=== PATIENT | male | born 1950 | race Caucasian/White ===

== ENCOUNTER 2018-05-16 05:32 | Day surgery (SDC) | payer OTHER, BC ==
[~2018-05-16] VITALS: Ht 193 cm; Wt 120.2 kg
--- NOTE | ~2018-05-16 | O ---
[facility] [place] [address] OPERATIVE REPORT Name: CASSIDY OSCAR Room #: 150-2 [facility] M..#: [id number] Admission: 05/16/18 Attend Phys: Navin Woody MD Discharge: Date of : 50 Report #: [id number] THIS REPORT FOR: //name// CC: Yony Schulte PREOPERATIVE DIAGNOSIS: Left orbital dermolipoma with mechanical ectropion. POSTOPERATIVE DIAGNOSIS: Left orbital dermolipoma with mechanical ectropion. PROCEDURE: Left transconjunctival orbitotomy. SURGEON: Navin Woody M.D. ADVANCED MANUFACTURING CONSULTANT: None. ANESTHESIA: General. COMPLICATIONS: None. INDICATIONS FOR SURGERY: This pleasant 67-year-old gentleman has a left orbital mass inducing a secondary mechanical ectropion with chronic ocular irritation. The lesion appears to be an orbital dermolipoma. He presents today for debulking of this lesion transconjunctivally with histopathologic examination of the tissue removed. Informed consent was obtained to include but not limited to potential risk for loss of vision, bleeding, infection, failure to improve the problem, the potential need for further surgery or treatment. DESCRIPTION OF PROCEDURE: The patient was taken to the operating room where general anesthesia was administered. The left orbit was then anesthetized transconjunctivally with Xylocaine with epinephrine mixed with Marcaine and Wydase. An additional aliquot of anesthetic was administered over the left lateral canthus to achieve the 7th nerve block. The patient was subsequently prepped and draped in the usual sterile fashion. The lids were then retracted to allow access to the superolateral orbit. A transconjunctival incision was then made above the anticipated site of the superior border of the lateral rectus muscle. The dissection was then carried down through Tenon's capsule until the mass was identified. The mass was from the underlying globe, episclera, lateral rectus muscle, superior rectus muscle, and the lacrimal gland. The mass was then drawn anteriorly and clamped at its base with a Cynthia clamp. It was then amputated with a high-temp cautery. The stump was grasped before the clamp was released in order to ensure that hemostasis was achieved. The stump was released and then regrasped and an additional aliquot of tissue was similarly clamped, cauterized and removed. At this point in time, the mechanical ectropion was completely [address] [address] OPERATIVE REPORT Name: CASSIDY OSCAR Room #: 150-2 [facility].#: [id number] Admission: 05/16/18 Attend Phys: Navin Woody MD Discharge: Date of : 50 Report #: [id number] resolved. The incision was then closed with interrupted buried 6-0 plain gut sutures. Erythromycin ophthalmic ointment was then placed on the surface of the eye and the patient subsequently transported to the recovery area having tolerated the procedure well with no anesthetic or operative complications being noted. By: 1418 1516 Navin Woody MD /kenney
--- NOTE | ~2018-05-16 | PATH ---
[facility] [address] [place] [address] PATHOLOGY RPT PROCEDURE Name: CASSIDY OSCAR Room #: [place] [facility] [place]..#: [id number] Admission: 05/16/18 Date of : 50 Discharge: 05/16/18 Report #: [id number] Path Case #: [id number] [facility] Accession Number: [id number] . 01 Material submitted: . BENIGN NEOPLASM OF ORBIT . 01 Clinical history: . Benign neoplasm of orbit . 02 Diagnosis: Soft tissue "left orbital dermolipoma": - Mature lobulated fibroadipose tissue consistent with a lipoma. (SHA:colton; 05/18/2018) QMS/05/18/2018 . 02 Electronically signed: . Kuldip Vincent MD, Pathologist NPI- [id number] . 01 Gross description: . Received in formalin labeled "Cassidy Oscar, left orbital dermolipoma," are multiple segments of pale yellow, lobulated adipose tissue measuring 1.7 x 1.2 x 0.6 cm in aggregate dimensions. Sectioning reveals homogenous, pale yellow cut surfaces. The specimen is submitted entirely in cassette A1. (DAC; 05/17/2018) XDC/XDC . 02 Pathologist provided ICD-10: D17.79 . 02 CPT . 125980 Specimen Comment: A courtesy copy of this report has been sent to Specimen Comment: [phone], . Specimen Comment: Report sent to / DR ABDI Performed at: [address], [place], [place] [id number] MD Tono William MD Phone: [phone] Performed at: [address] [id number] MD Shannen Brower MD Phone: [phone]
[~2018-05-16 05:32] MED LIST: ASPIRIN325 PO; ATORVASTATIN CA40 MG PO; HYDROCODONE-AP1 EAC6 PO; LIPITOR 20 MG T20 M1 PO; LISINOPRIL10 MG PO; NEURONTIN 400400 M1 PO; NORCO 5-325 TA1 EACH PO; PROTONIX40 MG PO
[2018-05-16 13:13] VITALS: BP 162/81
== END 2018-05-16 15:30 | disposition home or self-care (01) ==
LOC: TBA 05:32 → OR 05:32
DX: D17.39 Benign lipomatous neoplasm of skin and subcutaneous tissue of other sites (principal); H02.1 Ectropion of eyelid; E78.00 Pure hypercholesterolemia, unspecified; K21.9 Gastro-esophageal reflux disease without esophagitis; G47.33 Obstructive sleep apnea (adult) (pediatric); Z85.47 Personal history of malignant neoplasm of testis; Z87.442 Personal history of urinary calculi; Z98.890 Other specified postprocedural states; Z79.899 Other long term (current) drug therapy; Z90.49 Acquired absence of other specified parts of digestive tract; Z79.82 Long term (current) use of aspirin; Z86.73 Personal history of transient ischemic attack (TIA), and cerebral infarction without residual deficits
CPT/HCPCS: 50010; 50101; 50386; 50398; 51636; 56531; 62110; 62900; 64037; 70005

== ENCOUNTER 2018-10-13 05:18 | Day surgery (SDC) | payer OTHER, BC ==
[~2018-10-13] VITALS: Ht 195.6 cm; Wt 127.9 kg
[~2018-10-13 05:18] MED LIST changes: +NEURONTIN600 MG PO
[2018-10-13 12:26] VITALS: BP 152/80
--- NOTE | 2018-10-17 06:18 | O ---
[facility] [place] [address] OPERATIVE REPORT Name: CASSIDY OSCAR Room #: DEP [facility]..#: [id number] Admission: 10/13/18 ������������������ Attend Phys: Navin Woody MD Discharge: 10/13/18 ������������������ Date of : 50 Report #: [id number] THIS REPORT FOR: //name// CC: Yony Schulte DATE OF SERVICE: 10/13/2018 SURGEON: Navin Woody MD CURRENCY EXCHANGE SPECIALIST: None. PREOPERATIVE DIAGNOSIS: Bilateral lower lid ectropion. POSTOPERATIVE DIAGNOSIS: Bilateral lower lid ectropion. OPERATION PERFORMED: Bilateral lower lid ectropion repair. ANESTHESIA: Local with IV sedation. COMPLICATIONS: None. INDICATIONS FOR PROCEDURE: This patient has bilateral acquired lower lid ectropion with chronic tearing and discharge. The current procedures are undertaken in order to improve the patient's visual function, lacrimal outflow, and level of comfort. Informed consent was obtained to include but not limit to the risk of loss of vision, bleeding, infection, scarring, failure to improve the problem and need for further surgery. DESCRIPTION OF OPERATION: The patient was taken to the operating room where 2% Xylocaine with epinephrine mixed with equal parts of 0.75% Marcaine with Wydase was administered transcutaneously and transconjunctivally to each lower lid and lateral canthal area. The patient was then prepped and draped in the usual sterile fashion. A Cynthia clamp was then used to clamp the left lateral canthus following which a sharp canthotomy and cantholysis were performed. The tarsal strip was prepared laterally, removing the lash bearing portion of the redundant lid margin and the redundant tarsal plate. Hemostasis was achieved with a monopolar cautery, as it was throughout the case. The tarsal strip was then secured to the internal portion of the lateral orbital tubercle with two interrupted 5-0 Prolene sutures. The lateral canthal angle was sharply reformed as the subcutaneous structures and the skin were closed with multiple interrupted 6-0 plain gut sutures. Attention was then turned to the right side where the same procedure was performed. The wounds were cleaned and dressed with ophthalmic antibiotic [address] [address] OPERATIVE REPORT Name: CASSIDY OSCAR Room #: DEP [facility].#: [id number] Admission: 10/13/18 ������������������ Attend Phys: Navin Woody MD Discharge: 10/13/18 ������������������ Date of : 50 Report #: [id number] ointment. The patient was then transported to the recovery area, having tolerated the procedure well with no anesthetic or operative complications being noted. ��������������������������������������������� <ELECTRONICALLY SIGNED> ���������������������������������������� By: Navin Woody MD ��������������������������������������������� 10/17/18 0618 [id number] Navin Woody MD /nt
== END 2018-10-13 15:00 | disposition home or self-care (01) ==
LOC: OR 05:18 → TBA 05:19 → OR 09:57
DX: H02.102 Unspecified ectropion of right lower eyelid (principal); H02.105 Unspecified ectropion of left lower eyelid; Z68.33 Body mass index [BMI] 33.0-33.9, adult; E78.00 Pure hypercholesterolemia, unspecified; Z98.890 Other specified postprocedural states; K21.9 Gastro-esophageal reflux disease without esophagitis; G47.30 Sleep apnea, unspecified; Z79.899 Other long term (current) drug therapy
CPT/HCPCS: 50010; 50101; 50386; 50398; 51636; 56527; 56531; 62110; 62850; 70005

== ENCOUNTER 2018-11-10 05:27 | Day surgery (SDC) | payer OTHER, BC ==
[~2018-11-10] VITALS: Ht 195.6 cm; Wt 124.7 kg
--- NOTE | ~2018-11-10 | O ---
[facility] [place] [address] OPERATIVE REPORT Name: CASSIDY OSCAR Room #: 150-1 [facility]..#: [id number] Admission: 11/10/18 ������������������ Attend Phys: Navin Woody MD Discharge: ������������������ Date of : 50 Report #: [id number] THIS REPORT FOR: //name// CC: Yony Schulte DATE OF SERVICE: 11/10/2018 SURGEON: Navin Woody MD KEYMODULE ASSEMBLY MACHINE TENDER: None. PREOPERATIVE DIAGNOSIS: Bilateral upper lid dermatochalasia with superior visual field defect. POSTOPERATIVE DIAGNOSIS: Bilateral upper lid dermatochalasia with superior visual field defect. OPERATION PERFORMED: Bilateral upper lid functional blepharoplasty. ANESTHESIA: Local with IV sedation. COMPLICATIONS: None. INDICATIONS FOR SURGERY: This patient has acquired upper lid dermatochalasia with superior visual field loss both eyes because of excessive upper lid tissues to include skin and fat. Visual field testing demonstrates dense superior visual defects. Retesting with the upper lid elevated shows an improvement in visual field loss of over 30% and in excess of 12 degrees. The current procedures are undertaken in order to improve the patient's visual function. Informed consent was obtained to include but not limited to the loss of vision, bleeding, infection, scarring, failure to improve the problem and need for further surgery. DESCRIPTION OF OPERATION: The patient was taken to the operating room, where 2% Xylocaine with epinephrine mixed with equal parts of 0.75% Marcaine with Wydase was administered transcutaneously to each upper lid. The patient was then prepped and draped in the usual sterile fashion and a skin-marking pen was then utilized to outline an upper lid crease that was symmetrical on each side. Graefe forceps were then used to quantitate the redundant upper lid skin and it was similarly outlined. The incisions were then made with Franco scissors and a skin-muscle flap removed from each side with high-temp cautery. Hemostasis was achieved with the monopolar cautery as it was throughout the case. The orbital septum was then identified and the central and medial fat pads were [address] [address] OPERATIVE REPORT Name: CASSIDY OSCAR Room #: 150-1 [facility] M..#: [id number] Admission: 11/10/18 ������������������ Attend Phys: Navin Woody MD Discharge: ������������������ Date of : 50 Report #: [id number] inspected. The redundant soft tissue was then sculpted with the monopolar cautery. The upper lid crease was then reformed with tightening of the pretarsal orbicularis muscle. The upper lid crease was then further reformed with multiple interrupted 6-0 chromic sutures. The skin was then closed with a running 6-0 plain gut suture. The wound was then cleaned and dressed with ophthalmic antibiotic ointment and a nonstick dressing. The patient was transported to the recovery area, where cold compresses were applied, having tolerated the procedure well with no anesthetic or operative complications being noted. ��������������������������������������������� ���������������������������������������� By: ��������������������������������������������� Sarah: 11/10/18 0912 0934 Navin Woody MD /nt
[2018-11-10 07:37] VITALS: BP 143/69
== END 2018-11-10 10:00 | disposition home or self-care (01) ==
LOC: OR 05:27 → TBA 05:28 → OR 10:00
DX: H02.834 Dermatochalasis of left upper eyelid (principal); H02.831 Dermatochalasis of right upper eyelid; H53.462 Homonymous bilateral field defects, left side; H53.461 Homonymous bilateral field defects, right side; Z68.32 Body mass index [BMI] 32.0-32.9, adult; G47.30 Sleep apnea, unspecified; E78.5 Hyperlipidemia, unspecified; K21.9 Gastro-esophageal reflux disease without esophagitis; Z98.890 Other specified postprocedural states; E78.00 Pure hypercholesterolemia, unspecified
CPT/HCPCS: 50010; 50101; 50386; 50398; 51636; 56531; 62110; 62850; 70005

== ENCOUNTER → 2019-09-01 | Outpatient (CLI) | payer OTHER, BC | LOC: ULTRA 13:33 | DX: M79.604 Pain in right leg (principal); M79.89 Other specified soft tissue disorders ==

== ENCOUNTER → 2020-05-28 | Outpatient (CLI) | payer OTHER, BC | LOC: MRI 07:03 | PROVIDERS: ATTEND Family Medicine | DX: M51.17 Intervertebral disc disorders with radiculopathy, lumbosacral region (principal); M47.26 Other spondylosis with radiculopathy, lumbar region; M25.78 Osteophyte, vertebrae ==

== ENCOUNTER → 2021-08-12 | Outpatient (CLI) | payer OTHER, BC | LOC: RAD 12:20 | PROVIDERS: ATTEND Family Medicine | DX: M79.604 Pain in right leg (principal) ==